=== PATIENT | male | born 1965 | race Caucasian/White ===

== ENCOUNTER 2016-11-25 08:54 | Emergency (ER) | payer SELFPAY ==
[~2016-11-25 08:54] MED LIST: ZONEGRAM PO
[2016-11-25 08:59] VITALS: BP 137/74; PULSE 256; PULSE 56; RESP 20; TEMP 97.6; O2SAT 97
[2016-11-25] MEDS ORDERED: SITZMIS (09:51)
[2016-11-25] MEDS ORDERED: HYDR2.5%T RECTAL (09:51)
--- NOTE | 2016-11-25 09:52 | PD ---
HPI Chief Complaint: Skin Problem Time Seen by Provider: 09:41 Travel History International Travel<30 days: No Contact w/Intl Traveler<30days: No Traveled to known affect area: No History of Present Illness HPI This is a 51-year-old male who presents to the emergency department with hemorrhoids that are painful for 2 days, constant, worse with having bowel movements and using his today. He's been using rectacare cream but it's not been helping. Patient has had hemorrhoids intermittently for several months. He's never seen a GI doctor because he doesn't have insurance. PFSH Past Medical History Seizures: Yes Social History Alcohol Use: No Tobacco Use: Yes (1 PPD) Allergies-Medications (Allergen,Severity, Reaction): Coded Allergies: No Known Allergies (Verified , 11/25/16) Reported Meds & Prescriptions Reported Meds & Active Scripts Active Reported [Zonegram] 300 Mg PO HS Review of Systems Except as stated in HPI: all other systems reviewed are Neg Physical Exam Narrative GENERAL:Well appearing, no acute distress SKIN: Focused skin assessment warm and dry. HEAD: Atraumatic. Normocephalic. EYES: Pupils equal and round. No injection or drainage. ENT: Moist mucous membranes NECK: Trachea midline. CARDIOVASCULAR: Regular rate and rhythm. No murmur appreciated. RESPIRATORY: Clear to auscultation. Breath sounds equal bilaterally. GASTROINTESTINAL: Abdomen soft, non-tender, nondistended. Large thrombosed hemorrhoid in the rectal area. MUSCULOSKELETAL: No obvious deformities. NEUROLOGICAL: Awake and alert. No obvious cranial nerve deficits. Moving all extremities. PSYCHIATRIC: Appropriate mood and affect; insight and judgment normal. Data Data Last Documented VS Vital Signs Date Time Temp Pulse Resp B/P Pulse Ox O2 Delivery O2 Flow Rate FiO2 11/25/16 08:59 97.6 56 20 137/74 97 MDM Medical Decision Making Medical Screen Exam Complete: Yes Emergency Medical Condition: Yes Interpretation(s) Afebrile, no tachycardia, normotensive Differential Diagnosis External hemorrhoids, internal hemorrhoids, thrombosed hemorrhoid Narrative Course This is a 51-year-old male who presents to the emergency department with pain in his rectal area with symptomatic hemorrhoids. He is otherwise well- appearing. He was given Anusol, sitz baths were recommended and he was referred to gastroenterology. Diagnosis Primary Impression: Hemorrhoids, thrombosed Referrals: [facility] Patient Instructions: General Instructions Additional Instructions: It's very important that you follow-up with technical instructor for your hemorrhoids. Med/Other Pt SpecificInfo: Prescription(s) given Scripts Misc. Devices (Sitz Bath)1 Mis Mis #1 Unit Prov:Soniya Metzger MD 11/25/16 Hydrocortisone Rectal (Anusol-Hc Rectal)2.5% Cream1 Applic RECTAL Q4-6H PRN ( ITCHING/INFLAMMATION) #30 GM Ref 0 Prov:Soniya Metzger MD 11/25/16 Disposition: 01 DISCHARGE HOME Condition: Stable Soniya Metzger MD Nov 25, 2016 09:52
== END 2016-11-25 10:47 | disposition home or self-care (01) ==
LOC: NEPD 08:54
DX: K64.5 Perianal venous thrombosis (principal); F17.200 Nicotine dependence, unspecified, uncomplicated; Z86.69 Personal history of other diseases of the nervous system and sense organs
CPT/HCPCS: 99282